=== PATIENT | female | born 1980 | race Hispanic/Latino ===

== ENCOUNTER 2022-04-24 08:04 | Emergency (ER) | payer OTHER ==
[~2022-04-24] VITALS: Ht 165.1 cm; Wt 68.9 kg
[2022-04-24 09:02] LABS: HEMATOCRIT 44.7 % (36-48); MEAN CORPUSCULAR HEMOGLOBIN 27.4 pg (27.0-33.0); MEAN CORPUSCULAR HGB CONC 33.1 g/dL (32.0-36.0); MEAN CORPUSCULAR VOLUME 82.6 fL (79-99); RED BLOOD CELL COUNT(AUTO) 5.41 MIL/uL (4.00-5.50); RED CELL DISTRIBUTION WIDTH 12.4 % (11.0-15.5); WHITE BLOOD COUNT (AUTO) 4.8 K/uL (4.8-10.8)
[2022-04-24 09:07] LABS: APPEARANCE,URINE CLEAR (CLEAR); BILIRUBIN,URINE NEGATIVE (NEGATIVE); COLOR,URINE COLORLESS (YELLOW); GLUCOSE, URINE (UA) NEGATIVE (NEGATIVE); KETONES,URINE NEGATIVE (NEGATIVE); LEUKOCYTE ESTERASE ,URINE NEGATIVE Leu/uL (NEGATIVE); NITRATE,URINE NEGATIVE (NEGATIVE); OCCULT BLOOD,URINE LARGE (NEGATIVE); PROTEIN,URINE NEGATIVE (NEGATIVE); UROBILINOGEN,URINE 0.2 mg/dL (0.2-1.0)
[2022-04-24 09:15] LABS: HCG,QUALITATIVE URINE NEGATIVE (NEGATIVE)
[2022-04-24 09:19] LABS: CREATININE 0.7 mg/dL (0.5-1.5); POTASSIUM 3.8 mmol/L (3.5-5.1)
[2022-04-24 09:24] LABS: ALBUMIN 4.2 g/dL (3.5-5.0); BACTERIA,URINE RARE /HPF (None Seen); SQUAMOUS EPITHELIAL CELL,UR RARE /HPF (0-2); TOTAL PROTEIN, SERUM 8.5 g/dL (6.0-8.3); WBC,URINE 0-1 /HPF (0-1)
[2022-04-24] MEDS ORDERED: PROMETHAZINE HCL 25 MG TABLET PO SCH (09:30)
[2022-04-24 10:58] VITALS: BP 116/75
[2022-04-24] MEDS ORDERED: FLUT16H NASAL (11:59)
[2022-04-24] MEDS ORDERED: MECL-160 PO (11:59)
[2022-04-24] MEDS ORDERED: PRED20TA3 PO (11:59)
[2022-04-24] MEDS ORDERED: DEXAMETHASONE SOD PHOSPHATE 4 MG/ML 1ML VIAL IV ONE (12:00)
== END 2022-04-24 13:05 | disposition home or self-care (01) ==
LOC: EDH 08:04
DX: H81.10 Benign paroxysmal vertigo, unspecified ear (principal); R03.0 Elevated blood-pressure reading, without diagnosis of hypertension; F41.9 Anxiety disorder, unspecified
CPT/HCPCS: 99284; 96374; 80053; 85027; 81001; 81025; 36415; 93005; J1100; Q0169